=== PATIENT | female | born 1990 | race Caucasian/White ===

== ENCOUNTER 2017-12-28 22:40 | Outpatient (CLI) | payer OTHER ==
[~2017-12-28] VITALS: Ht 162.6 cm; Wt 72.7 kg
[2017-12-28 22:56] VITALS: BP 134/79; PULSE 67; TEMP 97.3
[2017-12-28] MEDS ORDERED: PRENATAL1 TA7 PO (23:05)
[2017-12-28 23:28] VITALS: BP 134/79; PULSE 67; TEMP 97.3
== END 2017-12-28 23:39 | disposition home or self-care (01) ==
LOC: LDRO 22:40
DX: O36.8930 Maternal care for other specified fetal problems, third trimester, not applicable or unspecified (principal); Z3A.34 34 weeks gestation of pregnancy

== ENCOUNTER 2022-12-24 15:26 | Outpatient (RCR) | payer OTHER ==
[~2022-12-24 15:26] MED LIST: PRENATAL1 TA7 PO
== END 2022-12-28 | disposition home or self-care (01) ==
LOC: WSOH
DX: S39.012A Strain of muscle, fascia and tendon of lower back, initial encounter (principal); Y99.0 Civilian activity done for income or pay; F41.8 Other specified anxiety disorders